=== PATIENT | female | born 1995 | race Caucasian/White ===

== ENCOUNTER 2020-07-28 18:57 | Emergency (ER) | payer BC, SELFPAY ==
[2020-07-28 19:13] VITALS: BP 139/65; PULSE 92; RESP 16; TEMP 36.6; O2SAT 96; BMI 38.9
--- NOTE | 2020-07-28 19:31 | ED_ITS ---
HPI - Extremity Injury (Lower) General Chief Complaint: Extremity Injury, Lower Stated Complaint: KNEE INJ Time Seen by Provider: 07/28/20 19:06 Source: patient Mode of arrival: ambulatory Limitations: no limitations History of Present Illness HPI Narrative: 24-year-old female here with right knee pain. The patient told me she was in a crouched position and went to stand up and felt a popping sensation in her right knee today. She went to urgent care and had x-rays which time we were unremarkable. Referred to [facility] but has not seen them yet. Using crutches and is limited weight-bearing. Patient is here because she has pain which is unrelieved with home Tylenol. Related Data Previous Rx's Medication Instructions Recorded naproxen 500 mg PO BID PRN #20 tab 07/28/20 Allergies Allergy/AdvReac Type Severity Reaction Status Date / Time cefaclor [From [facility]] Allergy Anaphylaxis Verified 07/28/20 19:07 Review of Systems Review of Systems: Yes all other systems are reviewed and are negative Constitutional: Constitutional: Reports no additional constitutional complaints, Denies body ache(s), Denies chills, Denies fever(s), Denies headache(s) and Denies weakness Eyes: Eyes: Reports no additional eye complaints and Denies change in vision ENT: Reports system reviewed and no additional complaints, except as documented, Denies dizziness, Denies headache(s), Denies nasal congestion, Denies nasal discharge and Denies neck pain Cardiovascular: Cardiovascular: Reports no additional cardiovascular complaints, Denies chest pain, Denies leg edema and Denies dyspnea Respiratory: Respiratory: Reports no additional respiratory complaints, Denies cough and Denies dyspnea Gastrointestinal: Gastrointestinal: Reports no additional gastrointestinal complaints, Denies abdominal pain, Denies diarrhea, Denies nausea and Denies vomiting Genitourinary: Genitourinary: Reports no additional female genitourinary complaints and Denies urinary incontinence Musculoskeletal: Musculoskeletal: Reports no additional musculoskeletal complaints, Denies back pain, Reports arthralgias, Reports joint swelling, Reports limited range of motion, Denies neck pain, Denies numbness and Denies tingling Integumentary/Breasts: Skin/Breast: Reports system reviewed and no additional complaints, except as docu and Denies rash Neurologic: Reports system reviewed and no additional complaints, except as documented, Denies Abnormal speech present, Denies dizziness, Denies headache(s), Denies numbness, Denies tingling and Denies weakness PMFSH Past Medical History Attestation statement: The following information was validated with the patient. Source: old records reviewed and nursing notes reviewed Medical History Asthma, exercise induced Surgical History Hx of right knee surgery Social History Social History Smoking Status: Current some day smoker Use of substances other than those prescribed or required for medical reasons: Yes Substance Use Type: Marijuana Advance Directives: No Advance Directives Information Provided: No Physical Exam Vital Signs: Vital Signs: Last Vital Signs Temp 97.8 F 07/28/20 19:13 Pulse 92 07/28/20 19:13 Resp 16 07/28/20 19:13 BP 139/65 07/28/20 19:13 Pulse Ox 96 07/28/20 19:13 Body Mass Index 38.9 Const: General: cooperative, healthy appearing, comfortable and no acute distress Orientation/consciousness: patient oriented x3 Limitations: no limitations HENMT: Head: Yes normal to inspection Ears: hearing grossly normal bilaterally General nose exam: Normal external nose present Face and sinus: Yes normal facial exam Mouth: Normal oral and palatal mucosa present Throat: Yes posterior oropharynx normal Eyes: General: appearance normal, both eyes and all related structures Pupils: Equal, round and reactive pupils present Neck: Neck: Yes normal visual inspection Chest: Chest palpation & inspection: normal inspection of the chest Resp: Effort & Inspection: normal respiratory effort Auscultation: clear to auscultation bilaterally Cardio: Rate: regular rate Rhythm: regular rhythm Peripheral pulses: Peripheral pulses 2+ throughout GI: Inspection: Yes normal to inspection Palpation (GI): Soft to palpation and nontender Auscultation: normal bowel sounds Back/Spine/Pelvis: Thoracic/Lumbar Spine: thoracic and lumbar spine normal to inspection Skin: General skin exam: no rashes or lesions noted Neuro: General: patient oriented x3, no focal motor deficits and normal sensation to monofilament Cranial nerves: Yes Equal, round and reactive pup ils present Cognition (Neuro): normal cognition Speech: No Abnormal speech present Gait exam (Neuro): Normal gait present Motor exam (neuro): 5/5 motor strength present throughout Extrem: Other: Tenderness over the right knee medial joint line. Ligamental laxity noted. Neurovascular intact distally. General: Yes normal to inspection Course Course Course Narrative: 24-year-old female here with right knee pain status post injury which occurred this morning. Seen at urgent care and had x-rays which showed no bony abnormality. Referred to [facility] but has not seen them yet. Using crutches and taking Tylenol at home with continued pain. On exam the patient has tenderness over the medial joint line and medial ligament with ligamental laxity concerning for an MCL sprain. Given Toradol IM with improvement of pain. Recommend patient continue to follow-up with orthopedics. Discussed supportive care at home and nonweightbearing. Reviewed worrisome signs and symptoms when to return to the emergency department. Comfortable discharge home. MDM - Extremity Injury (Lower) Medical Records Attestation: I reviewed the patient's medical records. Lab Data Attestation: I reviewed the patient's lab results. Discharge Plan Discharge Clinical Impression: MCL sprain of right knee Patient Disposition: Home, Self-Care Instructions: Knee Sprain (ED) Additional Instructions: rest and no weight bearing, use crutches ice 20 minutes on 20 minutes off, elevation call [facility] for appt. If unable to get in with them this week call our orthopedic team Prescriptions: New naproxen 500 mg tablet 500 mg PO BID PRN (Reason: pain) Qty: 20 RF: 0 Referrals: Wilbert Jacobs MD [Physician] - 2 days Interventions: ED Discharge Assessment Last Done: 07/28/20 19:38 Discharge Date/Time: 07/28/20 19:48
[2020-07-28] MEDS: Ketorolac Tromethamine 60 MG/2 ML VIAL IM (19:32)
== END 2020-07-28 19:48 | disposition home or self-care (01) ==
LOC: HO.ED 19:46
PROVIDERS: Emergency Provider Internal Medicine
DX: S83.411A Sprain of medial collateral ligament of right knee, initial encounter (principal); M25.561 Pain in right knee; F12.90 Cannabis use, unspecified, uncomplicated; W19.XXXA Unspecified fall, initial encounter; Y93.9 Activity, unspecified; Y92.9 Unspecified place or not applicable; Y99.9 Unspecified external cause status; Z79.899 Other long term (current) drug therapy
CPT/HCPCS: 96372; 96374; 99283; 99284; J1885

== ENCOUNTER 2022-01-28 15:44 | Emergency (ER) | payer OTHER, MEDICAID, SELFPAY ==
--- NOTE | ~2022-01-28 | CT_ITS ---
EXAMINATION: NONCONTRAST HEAD CT NONCONTRAST CERVICAL SPINE CT INDICATION INFORMATION: Fall with head strike COMPARISON: None TECHNIQUE: Separate noncontrast CT examinations of the head and cervical spine were performed. Coronal and sagittal images were created for each examination at the technologist workstation. This CT examination was performed using dose optimization techniques as appropriate, variously including the following: *Automated exposure control *Adjustment of mA and/or kV according to patient size (this includes techniques or standardized protocols for targeted exams where dose is matched to indication/reason for exam; i.e. extremities or head) *Use of iterative reconstruction technique DLP: 970 mGy-cm FINDINGS: HEAD: No intra or extra-axial fluid collection, hemorrhage, or mass. No ventriculomegaly. No midline shift or herniation. Basal cisterns are patent. Gonzalez-white matter differentiation is maintained. No territorial encephalomalacia. No significant volume loss. There is no abnormal attenuation within the brain parenchyma. No calvarial fracture or soft tissue abnormality. Mucosal thickening in the right maxillary antrum. Mastoid air cells normally aerated. CERVICAL SPINE: Alignment: Straightening of the normal cervical lordosis. No subluxation. Vertebra: No acute fracture. No prevertebral soft tissue swelling. Degenerative disc disease: No significant. Preserved intervertebral disc heights. Other findings: No cervical lymphadenopathy. Visualized major salivary glands and thyroid gland are unremarkable. Visualized lung apices are clear. CT/CT head/brain wo IV con IMPRESSION: 1. No intracranial hemorrhage or calvarial fracture. 2. No traumatic subluxation or acute cervical spine fracture.
--- NOTE | ~2022-01-28 | CT_ITS ---
EXAMINATION: NONCONTRAST HEAD CT NONCONTRAST CERVICAL SPINE CT INDICATION INFORMATION: Fall with head strike COMPARISON: None TECHNIQUE: Separate noncontrast CT examinations of the head and cervical spine were performed. Coronal and sagittal images were created for each examination at the technologist workstation. This CT examination was performed using dose optimization techniques as appropriate, variously including the following: *Automated exposure control *Adjustment of mA and/or kV according to patient size (this includes techniques or standardized protocols for targeted exams where dose is matched to indication/reason for exam; i.e. extremities or head) *Use of iterative reconstruction technique DLP: 970 mGy-cm FINDINGS: HEAD: No intra or extra-axial fluid collection, hemorrhage, or mass. No ventriculomegaly. No midline shift or herniation. Basal cisterns are patent. Gonzalez-white matter differentiation is maintained. No territorial encephalomalacia. No significant volume loss. There is no abnormal attenuation within the brain parenchyma. No calvarial fracture or soft tissue abnormality. Mucosal thickening in the right maxillary antrum. Mastoid air cells normally aerated. CERVICAL SPINE: Alignment: Straightening of the normal cervical lordosis. No subluxation. Vertebra: No acute fracture. No prevertebral soft tissue swelling. Degenerative disc disease: No significant. Preserved intervertebral disc heights. Other findings: No cervical lymphadenopathy. Visualized major salivary glands and thyroid gland are unremarkable. Visualized lung apices are clear. CT/CT cervical spine wo IV con IMPRESSION: 1. No intracranial hemorrhage or calvarial fracture. 2. No traumatic subluxation or acute cervical spine fracture.
--- NOTE | ~2022-01-28 | XR_ITS ---
EXAMINATION: XR HIP, LEFT CLINICAL INFORMATION: Fall with left hip pain COMPARISON: None TECHNIQUE: AP pelvis, AP and frog-leg lateral views of the left hip. FINDINGS: No acute fracture or dislocation. Bilateral hip joint spaces are maintained. Pubic symphysis and sacroiliac joints are congruent and intact. XR/XR hip LT min 2V IMPRESSION: 1. No fracture or dislocation
[2022-01-28 15:46] VITALS: BP 130/75; PULSE 77; RESP 18; TEMP 37.1; O2SAT 99; BMI 38.4
--- NOTE | 2022-01-28 18:48 | ED.FALL ---
HPI - Fall General Chief Complaint: Fall Stated Complaint: Fall at work Time Seen by Provider: 01/28/22 18:00 Source: patient Mode of arrival: ambulatory Limitations: no limitations History of Present Illness HPI Narrative: 26-year-old female with no pertinent PMHx presenting to the ED s/p fall at work eqarlier today. 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 She tells me that she landed on her left side, primarily on her left hip and left arm. She does report striking her head, however, states that she did not strike her head very hard. She does not have a headache, dizziness, vision change at this time or following the fall. Denies LOC or preceding symptoms of a fall, states that it was purely mechanical. Currently she is reporting left hip and thigh pain. She tells me that she has been ambulatory without any issues and has been able to move her left leg without any issue at the hip knee and ankle. She denies any fever, chills, shortness of breath, chest pain, back pain, neck pain, or additional injuries at this time. Not on thinners. MD complaint: fall Related Data Previous Rx's Medication Instructions Recorded naproxen 500 mg tablet 500 mg PO BID PRN pain #20 tabs 07/28/20 cyclobenzaprine 10 mg tablet 10 mg PO BEDTIME PRN muscle spasm 01/28/22 #7 tabs lidocaine 5 % topical patch 1 patch topical DAILY PRN pain #15 01/28/22 ea Allergies Allergy/AdvReac Type Severity Reaction Status Date / Time cefaclor [From [facility]] Allergy Anaphylaxis Verified 07/28/20 19:07 Review of Systems Review of Systems: Constitutional : No Weight loss, No Fever, No Chills, No Fatigue, No Malaise ENT/Mouth : No sore throat, No Rhinorrhea Eyes: No Eye Pain, No Swelling, No Redness Cardiovascular : No Chest Pain, No SOB, No Dyspnea on Exertion, No Orthopnea, No Edema, No Palpitations Respiratory : No Cough, No Sputum, No Wheezing Gastrointestinal : No Nausea, No Vomiting, No Diarrhea, No Constipation, No abdominal Pain, No Hematochezia, No Melena Genitourinary : No Dysuria, No Urinary Frequency, No Hematuria, Musculoskeletal : + joint pain, + Myalgias, No Joint Swelling Skin : No Skin Lesions, No rash Neuro : No Weakness, No Numbness, No Dizziness, No Headache Psych : No Anxiety/Panic, No Depression Heme/Lymph: No Bruising, No Bleeding,No Lymphadenopathy Endocrine : No Polyuria, No Polydipsia All other systems reviewed and are negative Yes all other systems are reviewed and are negative [facility] Past Medical History Attestation statement: The following information was validated with the patient. Source: old records reviewed and nursing notes reviewed Medical History Asthma, exercise induced Surgical History Hx of right knee surgery Social History Social History Substance Use Type: Marijuana Advance Directives: No Advance Directives Information Provided: No Physical Exam Vital Signs: Vital Signs: Last Vital Signs Temp 98.8 F 01/28/22 15:46 Pulse 77 01/28/22 15:46 Resp 18 01/28/22 15:46 BP 130/75 01/28/22 15:46 Pulse Ox 99 01/28/22 15:46 O2 Del Method 01/28/22 15:46 BMI result Body Mass Index 38.4 VSS Appearance: Alert.? Oriented X3.? No acute distress.?Ambulatory with a steady gait. Head: Normocephalic, atraumatic, no step-offs or deformities Eyes: Pupils equal, round and reactive to light.? Neck: Normal inspection.? Neck supple.? CVS: Normal heart rate and rhythm.? Pulses normal.? Respiratory: No respiratory distress.? Breath sounds normal.? Abdomen: Soft and nontender.? Skin: Skin warm and dry.? Normal skin color.? Normal skin turgor.? Extremities: No lower extremity edema.? No calf ttp. 5/5 strength to bilateral upper and lower extremities. Mild tenderness to palpation of the posterior left thigh and left gluteal region. Full range of motion at the left hip, left knee, and left ankle. Normal sensation to bilateral lower extremities. No open wounds, ecchymosis, or swelling to the left thigh/hip/gluteal region. All compartments soft, non painful, normal sensation. Back: No midline tenderness, no C-spine tenderness, full range of motion, no CVA tenderness bilaterally. Compartments are soft. Neuro: Oriented X 3.? No motor deficit.? No sensory deficit. CN 2-12 intact. Normal [id number]-iain, [id number], steady tandem gait with normal coordination. Negative pronator drift. GCS-15 Course Reevaluation(s) Reevaluation #1: CT of the head with no acute findings. Cervical spine no acute subluxations, fractures, dislocations. Hip x-ray with no acute findings. Patient will be discharged home advised to take ibuprofen every 6 hours, Tylenol every 4, will be sent home with cyclobenzaprine, Lidoderm patches. Advised return with new or worsening symptoms. At this time I feel comfortable discharge home. Time: 21:19 MDM - Fall MDM Narrative Medical decision making narrative: 18:45 26 y/o F presenting s/p fall at work. Patient slipped in a puddle of water, fell onto her left side striking her left hip, left arm, and back of her head. No LOC, dizziness, headache. No thinners. PE signficant for tenderness to palpation of the posterior left thigh and hip, FROM, no wounds, ecchymosis or swelling. Compartments of the left leg are soft. Suspect soft tissue injury of the left thigh. Less likely hip fracture, tendon/ligamentous injury, ICH, cervical spine fx dislocations, compartment syndrome. Plan to obtain left hip x-ray to rule out fracture, head/c-spine CT due to postitive headstrike. Medical Records Attestation: I reviewed the patient's medical records. Lab Data Attestation: I reviewed the patient's lab results. Critical Care Time Critical Care Time Critical Care Time: No Discharge Plan Discharge Clinical Impression: Fall, Hip pain, Work related injury, Concussion without loss of consciousness Patient Disposition: Home, Self-Care Instructions: Fall Prevention (ED), Hip Pain (ED), Post Concussion Syndrome (ED) Additional Instructions: Take your medications as prescribed. If you were prescribed antibiotics today, it is important that you take your medication to their entirety, do not skip any doses, do not finish them early. Follow-up with your primary care provider this week. Return to the emergency department with new or worsening symptoms. Such as fevers, chills, chest pain, shortness of breath, nausea, vomiting, dizziness, headache, vision changes, lethargy In case of emergency call 911 You can take ibuprofen every 6 hours, Tylenol every 4 as needed for pain or discomfort. Cyclobenzaprine muscle relaxers been sent to her pharmacy, please take this as prescribed, please do not take this while driving or operating machinery it can cause drowsiness. Please do not should this medication with others. Since this was a work related injury please follow-up with the work connection. CT/CT cervical spine & head wo IV con IMPRESSION: ? 1. No intracranial hemorrhage or calvarial fracture. 2. No traumatic subluxation or acute cervical spine fracture. XR/XR hip LT min 2V IMPRESSION: ? 1. No fracture or dislocation Prescriptions: New cyclobenzaprine 10 mg tablet 10 mg PO BEDTIME PRN (Reason: muscle spasm) Qty: 7 0RF lidocaine 5 % adhesive patch,medicated 1 patch topical DAILY PRN (Reason: pain) Qty: 15 0RF Rx Instructions: leave on most painful area for up to 12 hrs No Action naproxen 500 mg tablet 500 mg PO BID PRN (Reason: pain) Qty: 20 0RF Referrals: Physician,None [Primary Care Provider] - 2 days Stand Alone Forms: Work/School Release
[2022-01-28] MEDS: Ketorolac Tromethamine 15 MG/ML VIAL IM (21:25)
[2022-01-28] MEDS: Acetaminophen 325 MG TABLET 975 MG PO (21:25)
== END 2022-01-28 21:43 | disposition home or self-care (01) ==
PROVIDERS: Emergency Provider Student in an Organized Health Care Education/Training Program
DX: S06.0X0A Concussion without loss of consciousness, initial encounter (principal); M25.552 Pain in left hip; M79.602 Pain in left arm; R51.9 Headache, unspecified; M54.2 Cervicalgia; W01.0XXA Fall on same level from slipping, tripping and stumbling without subsequent striking against object, initial encounter; Y93.9 Activity, unspecified; Y92.9 Unspecified place or not applicable; Y99.0 Civilian activity done for income or pay; Z79.899 Other long term (current) drug therapy
CPT/HCPCS: 70450; 72125; 73502; 96372; 99283; 99284; J1885